=== PATIENT | male | born 1985 | race Hispanic/Latino ===

== ENCOUNTER 2025-05-19 06:17 | Day surgery (SDC) | payer OTHER ==
[2025-05-17 12:09] LABS: IMMATURE GRANULOCYTE ABSOLUTE 0.05 K/uL (0-1); NUCLEATED RED BLOOD CELLS 0.0 % (0.0-0.19); PLATELET COUNT (AUTO) 274 K/uL (130-400); RED BLOOD CELL COUNT(AUTO) 5.25 MIL/uL (4.50-6.20); RED CELL DISTRIBUTION WIDTH 13.4 % (11.0-15.5); WHITE BLOOD COUNT (AUTO) 8.2 K/uL (4.8-10.8)
[2025-05-17 12:19] LABS: CREATININE 1.0 mg/dL (0.5-1.3); GLOMERULAR FILTR. RATE CALC 99.0 mL/min (>90); GLUCOSE,RANDOM 100.0 mg/dL (70-105); SODIUM SERUM 140.0 mmol/L (136-145); UREA NITROGEN, BLOOD 10.0 mg/dL (7-18)
[2025-05-17 12:21] LABS: INR <= 0.93 (0.85-1.15)
[2025-05-17 12:39] VITALS: BP 119/71; PULSE 66; RESP 18; TEMP 98.1
[2025-05-19] VITALS (15 sets, daily range): BP systolic 115–138; BP diastolic 63–84; PULSE 58–71; RESP 14–17; TEMP 97–97.4
[~2025-05-19] VITALS: Ht 170.2 cm; Wt 74.3 kg
[~2025-05-19 06:17] MED LIST: ATOR10 PO; HYDROCODONE/APAP PO
[2025-05-19] MEDS ORDERED: CYCL-309 PO (06:54)
[2025-05-19] MEDS ORDERED: DOCU-116 PO (06:54)
[2025-05-19] MEDS ORDERED: HYDR-4060 PO (06:54)
[2025-05-19] MEDS: LACTATED RINGERS 1000ML 1,000 ML IV ONE (07:06)
[2025-05-19] MEDS ORDERED: GABAPENTIN 300 MG CAPSULE ONE (07:27)
[2025-05-19] MEDS ORDERED: FAMOTIDINE 20MG VIAL IV ONE (07:28)
[2025-05-19] MEDS ORDERED: LIDOCAINE PF 100MG/5ML (2%) SYRINGE 5ML ONE (07:47)
[2025-05-19] MEDS ORDERED: GLYCOPYRROLATE 0.2 MG/ML 5 ML VIAL ONE (10:50)
[2025-05-19] MEDS ORDERED: NEOSTIGMINE METHYLSULFATE 1MG/ML IV ONE (10:50)
--- NOTE | 2025-05-19 12:48 | NUR ---
Full and complete discharge instructions given to Patient and Friend both verbally and in writing. Explained Surgical procedure precautions and follow up. Clavicle incision site clean dry and intact. No evidence of bleeding, bruising or hematoma. Sling intact as ordered. All questions answered. PIV removed with catheter tip intact. Friend at bedside appearing supportive. Voided in bathroom. He remains Neurovasculaly intact. W/C to POV with Friend to home
--- NOTE | 2025-05-19 23:53 | OP ---
Operative Note: DATE OF PROCEDURE: 05/19/25 SURGEON: JILLIAN WONG MD CREATIVE SERVICES PRODUCER: Jazzy Rosales ANESTHESIA: General and interscalene block ANESTHESIOLOGIST/[employer] CONSULTANT: Jodi Lester PREOPERATIVE DIAGNOSIS: left clavicle comminuted midshaft fracture POSTOPERATIVE DIAGNOSIS: left clavicle comminuted midshaft fracture PROCEDURE: open reduction internal fixation left clavicle midshaft fracture ESTIMATED BLOOD LOSS: 50 cc INDICATIONS: 39 year old right hand dominant male who sustained a left clavicle injury in an [facility] 2.5 weeks ago presented to clinic in a sling. X-ray findings with Z deformity and significant shortening of the clavicle were reviewed with the patient. After discussion of the risks, benefits, and alternatives, the patient voluntarily agreed to undergo the aforementioned procedure. DESCRIPTION OF PROCEDURE: Patient was properly identified in the preoperative holding area. Surgical site marking was verified and surgery consent reviewed. The patient was then taken to the operating room and placed in supine position on the OR table. After induction of general anesthesia, preoperative antibiotics were given, all bony prominences were well-padded as the patient was transitioned into beachchair position. The left upper extremity was then prepped and draped in usual sterile fashion. Surgical timeout was done verifying correct surgery, side, site, and location to be performed. We then began the procedure by using an 15 blade to make an approximately 15 cm long incision over the clavicle. Hemostasis was achieved with Bovie electrocautery. We then cut directly down on the medial clavicular fragment and elevated the pec insertion anteriorly using a page elevator. We then further used the distal portion of this fragment to help us identify the butterfly fragments. As this became more complex due to some callous beginning to form, we went ahead and identified the lateral fragment and elevated the anterior deltoid insertion anterolaterally. We were then able to use a freer elevator to free up our fracture fragments and distract them. We then were able to debride some of the interposed periosteum and soft tissue using a curette and rongeur. We noted there to be comminution along the butterfly fragment with this piece having individual anterior and posterior fragments. The reduction was then obtained using traction and a provisional styloid K wire was placed to hold this reduction building from the medial fragment through the butterfly fragment. The lateral fragment reduction was then obtained using traction and a 2nd provisional styloid K wire was placed to hold this reduction through the butterfly fragment. This was then visualized under 2 view fluoroscopic views to ensure we were happy with the reduction wire placement. We then selected our plate, using the [employer] 8 hole superior locking plate. This was clamped into place and verified to be in appropriate position under fluoroscopic views. We then placed our cortical screws proximally and distally reducing the bone to the plate. We verified reduction and plate placement once more under fluoroscopy. At this point we began to drill and fill the proximal and distal screws placing all locking screws. We took care to ensure there was no plunging of the drill with retractors under the clavicle. We then removed our provisional fixation K wires but lost the reduction of the butterfly fragment. The remainder of the fracture stayed reduced. The butterfly portion was re- aligned and held with a K wire. #1 Vicryl was then used on the soft tissue attachments of the butterfly fragment to suture it in place and help hold the reduction. K wire was removed and this appeared to have worked. This point we obtained our final fluoroscopic films insuring we were happy with our hardware placement and fixation of the clavicle fracture as well as the reduction. We then thoroughly irrigated out the wound with normal saline and began to repair fascial layers of the elevated muscles with #1 vicryl. Then we repaired the subcutaneous tissue using a 2-0 Vicryl suture. A running subcuticular 3-0 Monocryl stitch was used to close the skin. Dermabond was applied over this. Sterile soft dressing was applied. A sling was placed to assist with supporting the weight of the arm. The patient was awakened from anesthesia and taken to the recovery room in stable condition. JILLIAN WONG MD May 19, 2025 23:53
--- NOTE | 2025-05-26 12:02 | HMCIMG ---
CLAVICLE LEFT REASON: ORIF LT Clavicle FX TECHNIQUE: 6 C-arm views views were obtained. FINDINGS: There patient undergoing ORIF of the distal half of left clavicle with placement of orthopedic plates and screw which appears to be in satisfactory position. The fracture fragment appears to be in anatomical position.. Fluoroscopy time is 11.5 seconds. IMPRESSION: Details of the finding in the operative notes.
== END 2025-05-19 12:56 | disposition home or self-care (01) ==
LOC: DAH 06:17
PROVIDERS: ATTEND Student in an Organized Health Care Education/Training Program
DX: S42.022A Displaced fracture of shaft of left clavicle, initial encounter for closed fracture (principal); I10 Essential (primary) hypertension; E78.5 Hyperlipidemia, unspecified; K21.9 Gastro-esophageal reflux disease without esophagitis; X58.XXXA Exposure to other specified factors, initial encounter; Y93.89 Activity, other specified; Y92.89 Other specified places as the place of occurrence of the external cause; Y99.8 Other external cause status
CPT/HCPCS: 80048; 85025; 85610; 85730; 36415; 23515; 64415; 73000; C1713 ×5; A4663; J7120; J3490 ×4; J3010; J1100; J2003; J2704; J2405; J2710; J2795; J0690 ×2; A6204; A4930 ×2; A6255; A5120; A4215 ×2; A4213; A4222; A4221; A4216; A4223 ×2; A4600